=== PATIENT | male | born 1995 | race Two or more races ===

== ENCOUNTER 2017-01-20 12:13 | Emergency (ER) | payer OTHER ==
[2017-01-20 12:28] VITALS: TEMP 97.9; BMI 29.8
--- NOTE | 2017-01-20 12:57 | PDOC ---
History of Present Illness - General History Source: Patient Exam Limitations: No Limitations - History of Present Illness Initial Comments: 01/20/17 16:08 The patient is a 21 year old male, with a significant past medical history of Seizures, who presents to the emergency department with sudden onset seizure today morning. Patient states he skipped his seizure medication (Keppra 500 mg BID) yesterday. Patient notes his last seizure was in Jul 2016. He reports failure to follow up with Neurologist at [facility] s/p brain surgery and presents to the ED for further evaluation. Patient denies any head trauma, LOC, injuries s/p seizure. Patient denied tongue biting, eye rolling, urinary/ bowel incontinence. Currently, in the ED patient denies any headache, pain, nausea, vomiting or dizziness. He denies fever, chills, chest pain, abdominal pain, diarrhea or constipation. He denies dysuria, frequency, urgency or hematuria. Allergies: NKA Past surgical history: Brain surgery (""blood clot removed from brain"") Social history: Current everyday smoker. Social EtOH use. Social Marijuana use. PCP: None " <Yelitza Infante - Last Filed: 01/20/17 16:08> <Jerry Ma - Last Filed: 01/20/17 18:01> - General Chief Complaint: Seizure Stated Complaint: Seizure Time Seen by Provider: 01/20/17 12:37 Past History <Yelitza Infante - Last Filed: 01/20/17 16:08> - Past Medical History Seizures: Yes - Surgical History Neurologic Surgery: Yes (blood clot removed from brain) - Psycho/Social/Smoking Cessation Hx Suicidal Ideation: No Smoking History: Current some day smoker Information on smoking cessation initiated: No <Jerry Ma - Last Filed: 01/20/17 18:01> - Past Medical History Allergies/Adverse Reactions: Allergies Allergy/AdvReac Type Severity Reaction Status Date / Time No Known Allergies Allergy Verified 01/20/17 12:26 Home Medications: Ambulatory Orders Levetiracetam [Keppra -] 500 mg PO BID 01/20/17 Levetiracetam [Keppra -] 500 mg PO BID #14 tablet 01/20/17 Review of Systems - Review of Systems Comments:: 01/20/17 16:09 GENERAL/CONSTITUTIONAL: No fever or chills. No weakness. HEAD, EYES, EARS, NOSE AND THROAT: No change in vision. No ear pain or discharge. No sore throat. CARDIOVASCULAR: No chest pain or shortness of breath. RESPIRATORY: No cough, wheezing, or hemoptysis. GASTROINTESTINAL: No nausea, vomiting, diarrhea or constipation. GENITOURINARY: No dysuria, frequency, or change in urination. MUSCULOSKELETAL: No joint or muscle swelling or pain. No neck or back pain. SKIN: No rash NEUROLOGIC: No headache, vertigo,+LOC, +seizure, or change in strength/ sensation. ENDOCRINE: No increased thirst. No abnormal weight change. HEMATOLOGIC/LYMPHATIC: No anemia, easy bleeding, or history of blood clots. ALLERGIC/IMMUNOLOGIC: No hives or skin allergy. " <Yelitza Infante - Last Filed: 01/20/17 16:08> *Physical Exam - Vital Signs Last Vital Signs Temp Pulse Resp BP Pulse Ox 97.9 F 78 20 135/77 98 01/20/17 12:27 01/20/17 12:27 01/20/17 12:27 01/20/17 12:27 01/20/17 12:27 - Physical Exam Comments: 01/20/17 16:09 GENERAL: Awake, alert, and fully oriented, in no acute distress HEAD: No signs of trauma EYES: PERRLA, EOMI, sclera anicteric, conjunctiva clear ENT: Auricles normal inspection, hearing grossly normal, nares patent, oropharynx clear without exudates. Moist mucosa NECK: Normal ROM, supple, no lymphadenopathy, JVD, or masses LUNGS: Breath sounds equal, clear to auscultation bilaterally. No wheezes, and no crackles HEART: Regular rate and rhythm, normal S1 and S2, no murmurs, rubs or gallops ABDOMEN: Soft, nontender, normoactive bowel sounds. No guarding, no rebound. No masses EXTREMITIES: Normal range of motion, no edema. No clubbing or cyanosis. No cords, erythema, or tenderness NEUROLOGICAL: Normal speech, cranial nerves intact, negative pronator drift, 5/ 5 strength in all 4 extremities, normal sensation to light touch in all 4 extremities, normal cerebellar exam, normal gait, normal reflexes and tone SKIN: Warm, Dry, normal turgor, no rashes or lesions noted. " <Yelitza Infante - Last Filed: 01/20/17 16:08> - Vital Signs Last Vital Signs Temp Pulse Resp BP Pulse Ox 97.9 F 78 20 135/77 98 01/20/17 12:27 01/20/17 12:27 01/20/17 12:27 01/20/17 12:27 01/20/17 12:27 <Jerry Ma - Last Filed: 01/20/17 18:01> ED Treatment Course - LABORATORY CBC & Chemistry Diagram: 01/20/17 13:07 01/20/17 13:07 <Yelitza Infante - Last Filed: 01/20/17 16:08> - LABORATORY CBC & Chemistry Diagram: 01/20/17 13:07 01/20/17 13:07 <Jerry Ma - Last Filed: 01/20/17 18:01> Medical Decision Making - Medical Decision Making 01/20/17 13:05 Neurologist cost controller- Dr. Giancarlo wyattd via phone answering service. Awaiting call back. 01/20/17 13:07 Page returned. Patient case was discussed. <Yelitza Infante - Last Filed: 01/20/17 16:08> - Medical Decision Making 01/20/17 15:34 21-year-old male history of "brain clot removal "complicated by seizures presents with seizure likely secondary to medication noncompliance. Will check labs and EKG to evaluate for other causes of seizures such as toxic metabolic causes, infection, or ischemia. -labs -EKG -CXR -c/s neuro -reassess 01/20/17 16:[address] Lindsey from neurology who recommends we load the patient with 1500 mg of Keppra. I also discussed my plan to check some labs and a chest x- ray and EKG to look for other causes of seizure but he agrees that the patient likely had a breakthrough seizure secondary to medication noncompliance. 01/20/17 17:38 I placed a call to the emergency department at [facility] to try and figure out what surgery the patient had 2 yrs ago and also to see which neurologist the patient is followed by. The ER staff at [facility] was unable to locate the patient's chart in the EMR. The patient does not remember the name of his neurologist. The patient is currently asymptomatic. His workup thus far is negative for any reversible causes of a breakthrough seizure. Since he does not remember the name of his neurologist and also requests to follow with a neurologist here at [facility] as it's closer to his home, I will give him the number for neurology to follow up with. He also states that he only has 3 of his Keppra pills at home. I will refill his Keppra medications and discharge home. <Jerry Ma - Last Filed: 01/20/17 18:01> *DC/Admit/Observation/Transfer - Attestations Scribe Attestion: 01/20/17 13:19 Documentation prepared by Yelitza Infante, acting as chief medical director for Jerry Ma MD <Yelitza Infante - Last Filed: 01/20/17 16:08> - Discharge Dispostion Admit: No <Jerry Ma - Last Filed: 01/20/17 18:01> Diagnosis at time of Disposition: Seizure - Discharge Dispostion Disposition: HOME Condition at time of disposition: Stable - Referrals Referrals: Jluis Marin DO [Staff Physician] - - Patient Instructions Printed Discharge Instructions: Seizure Disorder -- Adult, Febrile Seizures Additional Instructions: Please take your seizure medication twice a day. It is important not to miss any doses of your medication as this is the best way to prevent further seizures. Please call our neurology clinic today or tomorrow to make a follow up appointment within 1 week. We have provided you with the number. Print Language: HONDURAN
[2017-01-20] MEDS ORDERED: levETIRAcetam 500 MG/5 ML INJECTION VIAL IVPB ONE ×2 (13:01→13:11)
[2017-01-20 13:15] LABS: BASOPHIL 0.5 % (0-2.0); EOSINOPHIL 0.9 % (0-4.5); MCH 30.7 pg (25.7-33.7); MCHC 32.9 g/dl (32.0-35.9); MEAN CELL VOLUME 93.5 fl (80-96); MEAN PLT VOLUME 9.1 fl (7.5-11.1); NEUTROPHILS 69.2 % (42.8-82.8); PLATELET COUNT 232 K/MM3 (134-434); RDW 13.8 % (11.9-15.9); WHITE BLOOD COUNT 8.8 K/mm3 (4.0-10.0)
[2017-01-20 13:26] LABS: INR 1.06 (0.82-1.09); PROTHROMBIN TIME (PATIENT) 11.7 SEC (9.98-11.88)
[2017-01-20 13:28] LABS: URINE APPEARANCE CLEAR; URINE BILIRUBIN NEGATIVE (NEGATIVE); URINE BLOOD 1+ (NEGATIVE); URINE COLOR LTYELLOW; URINE GLUCOSE (UA) NEGATIVE (NEGATIVE); URINE KETONE NEGATIVE (NEGATIVE); URINE LEUK ESTERASE NEGATIVE (NEGATIVE); URINE NITRITE NEGATIVE (NEGATIVE); URINE PROTEIN 1+ (NEGATIVE); URINE UROBILINOGEN NEGATIVE mg/dL (0.2-1.0)
[2017-01-20 13:29] LABS: URINE MUCUS RARE; URINE RBC <1 /hpf (0-3); URINE WBC <1 /hpf (3-5)
[2017-01-20 13:40] LABS: ANION GAP 10 (8-16); BILIRUBIN,TOTAL 0.3 mg/dL (0.2-1.0); CALCIUM 9.1 mg/dL (8.5-10.1); CO2 26 mmol/L (21-32); CREATININE 1.1 mg/dL (0.7-1.3); GLUCOSE,RANDOM 99 mg/dL (74-106); SGOT/AST 15 U/L (15-37); SGPT/ALT 31 U/L (12-78); TOT PROT 7.9 g/dl (6.4-8.2)
[2017-01-20 13:43] LABS: ALK PHOS 89 U/L (45-117); CPK 164 IU/L (39-308); TROPONIN I < 0.02 ng/ml (0.00-0.05)
[2017-01-20 14:42] LABS: MAGNESIUM 2.1 mg/dL (1.8-2.4)
--- NOTE | 2017-01-20 15:10 | EKG ---
Test Reason : Blood Pressure : / mmHG Vent. Rate : 054 BPM Atrial Rate : 054 BPM P-R Int : 160 ms QRS Dur : 092 ms QT Int : 384 ms P-R-T Axes : 011 001 044 degrees QTc Int : 364 ms SINUS BRADYCARDIA OTHERWISE NORMAL ECG NO PREVIOUS ECGS AVAILABLE Confirmed by BAL DIEHL MD ([id number]) on 01/20/2017 3:09:40 PM Referred By: Confirmed By:BAL DIEHL MD
[2017-01-20 18:28] VITALS: BP 122/75; PULSE 69
== END 2017-01-20 18:29 | disposition home or self-care (01) ==
LOC: JER 12:13
PROC: 3E033GC Introduction of Other Therapeutic Substance into Peripheral Vein, Percutaneous Approach (ICD-10-PCS; principal; 2017-01-20)
DX: R56.9 Unspecified convulsions (principal); F17.210 Nicotine dependence, cigarettes, uncomplicated
CPT/HCPCS: 36415; 71010-TC; 80053; 81003; 81015; 82553; 83735; 84484; 85025; 85610; 86850; 86900; 86901; 93005; 93010; 99284-25